=== PATIENT | male | born 1975 | race Caucasian/White ===

== ENCOUNTER 2021-09-05 19:49 | Emergency (ER) | payer BC, OTHER ==
[~2021-09-05] VITALS: Ht 172.7 cm; Wt 82.2 kg
[2021-09-05 20:12] VITALS: BP 121/89
[2021-09-05] MEDS ORDERED: traZODone 50mg tablet PO STA (22:33)
[2021-09-05] MEDS ORDERED: clonazePAM 1mg tablet PO ONE (22:35)
== END 2021-09-05 22:30 | disposition home or self-care (01) ==
LOC: ER 19:50
DX: F41.9 Anxiety disorder, unspecified (principal)
CPT/HCPCS: 99283

== ENCOUNTER 2021-10-08 12:10 | Emergency (ER) | payer BC, OTHER ==
[2021-10-08] MEDS ORDERED: acetaminophen 325mg tablet PO ONE (12:30)
[2021-10-08] MEDS ORDERED: bacitracin 15gm ointment TP ONE (12:30)
[2021-10-08] MEDS ORDERED: ceFAZolin 1000mg inj IV ONE (12:30)
[2021-10-08] MEDS ORDERED: LIDOcaine 1% W/epiNEPHrine 1:200,000 10ml vial IJ ONE (12:30)
[2021-10-08] MEDS ORDERED: ondansetron/PF 4mg/2ml inj IV ONE (12:30)
[2021-10-08] MEDS ORDERED: TETanus/Pertussis (Acell)/Diphther VAC/PF (Tdap-Adult) 0.5ml syringe IMVAC ONE (12:30)
[2021-10-08] MEDS ORDERED: ketorolac tromethamine 15mg/ml inj. IV ONE (12:30)
[2021-10-08] MEDS ORDERED: AMOX-580 PO (12:37)
[2021-10-08] MEDS ORDERED: HYDR-3964 PO (12:37)
[2021-10-08] MEDS ORDERED: ONDA4TAB12 PO (12:37)
[2021-10-08] MEDS ORDERED: cefazolin/dext.iso 2gm/50ml IV ONE (12:40)
[2021-10-08] MEDS ORDERED: LIDOcaine 1% W/epiNEPHrine 1:100,000 20ml vial IJ ONE (13:10)
--- NOTE | 2021-10-08 13:10 | NUR ---
bilingual manager at bedside to washout wound
[2021-10-08] MEDS ORDERED: amox tr/potassium clavulanate 875/125mg TAB PO ONE (13:15)
== END 2021-10-08 14:20 | disposition home or self-care (01) ==
LOC: ER 12:11
DX: S51.812A Laceration without foreign body of left forearm, initial encounter (principal); Z98.890 Other specified postprocedural states; Z79.2 Long term (current) use of antibiotics; Z79.899 Other long term (current) drug therapy; W54.0XXA Bitten by dog, initial encounter; Y93.89 Activity, other specified; Y92.89 Other specified places as the place of occurrence of the external cause; Y99.8 Other external cause status
CPT/HCPCS: 12031; 73090; 90471; 90715; 96374; 99284; J1885; J3490

== ENCOUNTER 2022-05-21 01:14 | Emergency (ER) | payer BC, OTHER ==
[~2022-05-21] VITALS: Ht 172.7 cm; Wt 84.8 kg
[~2022-05-21 01:14] MED LIST: ONDA4TAB12 PO
[2022-05-21] MEDS ORDERED: diphenhydrAMINE 50 mg/ml inj IM ONE (04:00)
[2022-05-21] MEDS ORDERED: haloperidol 5mg tablet PO ONE (04:00)
[2022-05-21] MEDS ORDERED: LORazepam 2 mg/ml vial IM ONE (04:00)
[2022-05-21 04:34] VITALS: BP 125/71
== END 2022-05-21 04:38 | disposition home or self-care (01) ==
LOC: ER 01:15
DX: G47.00 Insomnia, unspecified (principal); Z79.899 Other long term (current) drug therapy; F41.9 Anxiety disorder, unspecified
CPT/HCPCS: 96372; 99284; J1200; J2060

== ENCOUNTER 2023-12-16 09:35 | Emergency (ER) | payer BC ==
[~2023-12-16] VITALS: Ht 172.7 cm; Wt 90.9 kg
[2023-12-16] MEDS ORDERED: ketorolac trometh inj. 60 MG/2 ML VIAL IM ONE (12:55)
[2023-12-16] MEDS: dexamethasone sod phosphate 10mg/ml inj IM STA (13:32)
[2023-12-16] MEDS: cyclobenzaprine 10mg tablet PO ONE (13:33)
[2023-12-16] MEDS: ketorolac trometh. 30mg/ml inj. IM ONE (13:39)
[2023-12-16] MEDS ORDERED: CYCL5TAB14 PO (14:52)
[2023-12-16] MEDS ORDERED: DEC4T PO (14:52)
[2023-12-16 15:00] VITALS: BP 129/84; PULSE 69; TEMP 98; O2SAT 97
[2023-12-16] MEDS ORDERED: HYDR-3973 PO (15:11)
[2023-12-16] MEDS: HYDROcodone/acetaminophen 10/325mg tab PO ONE (15:22)
[2023-12-16 15:23] VITALS: RESP 17
== END 2023-12-16 16:36 | disposition home or self-care (01) ==
LOC: ER 09:36
DX: G89.29 Other chronic pain (principal); M54.59 Other low back pain; Z79.899 Other long term (current) drug therapy
CPT/HCPCS: 96372; 99284; J1100; J1885

== ENCOUNTER 2024-05-15 23:04 | Emergency (ER) | payer BC ==
[~2024-05-15] VITALS: Ht 172.7 cm; Wt 90.9 kg
[~2024-05-15 23:04] MED LIST changes: +CYCL5TAB14 PO; +ONDA-243 PO; -ONDA4TAB12 PO
[2024-05-15 23:27] LABS: BASOPHILS % (AUTO) 0.5 % (0-1); EOSINOPHILS # (AUTO) 0.4 X10'3 (0-0.9); EOSINOPHILS % (AUTO) 4.3 % (0-6); HEMATOCRIT 46.4 % (42.0-52.0); HEMOGLOBIN 15.6 g/dl (14.0-17.9); LYMPHOCYTES # (AUTO) 1.8 X10'3 (1.1-4.8); LYMPHOCYTES % (AUTO) 21.5 % (21-51); MEAN CORPUSCULAR HEMOGLOBIN 29.1 PG (27.0-31.0); MEAN CORPUSCULAR HGB CONC 33.5 g/dL (33.0-36.5); MEAN CORPUSCULAR VOLUME 86.7 FL (78-98); MONOCYTES # (AUTO) 0.7 X10'3 (0-0.9); MONOCYTES % (AUTO) 8.4 % (2-12); NEUTROPHILS # (AUTO) 5.3 X10'3 (1.8-7.7); NEUTROPHILS % (AUTO) 65.3 % (42-75); PLATELET COUNT 232 X10'3 (140-440); RED BLOOD COUNT 5.35 X10'6 (4.70-6.10); RED CELL DISTRIBUTION WIDTH 13.1 % (11.5-14.5); WHITE BLOOD COUNT 8.2 X10'3 (4.5-11.0)
[2024-05-15 23:34] LABS: ALANINE AMINOTRANSFERASE 39 U/L (12-78); ALBUMIN 4.2 G/DL (3.4-5.0); ALBUMIN/GLOBULIN RATIO 1.3 (1.1-1.5); ALKALINE PHOSPHATASE 55 IU/L (46-116); ANION GAP 9 (8-16); ASPARTATE AMINO TRANSFERASE 18 U/L (10-37); BILIRUBIN,TOTAL 0.6 MG/DL (0.1-1.0); BLOOD UREA NITROGEN 19 MG/DL (7-18); BUN/CREATININE RATIO 18.3 (10.0-20.0); CALCIUM 9.2 MG/DL (8.5-10.1); CHLORIDE 101 MMOL/L (99-107); CREATININE 1.04 MG/DL (0.60-1.10); GLUCOSE 124 MG/DL (70-104); POTASSIUM 3.7 MMOL/L (3.5-5.1); SODIUM 138 MMOL/L (135-145); TOTAL CARBON DIOXIDE 27.7 MMOL/L (24-32); TOTAL PROTEIN 7.4 G/DL (6.4-8.2); eCRCL 83 ML/MIN; eGFR 76 ML/MIN
[2024-05-15 23:43] LABS: PRO BRAIN NATRIURETIC PEPTIDE < 30 PG/ML (0-125)
[2024-05-15] MEDS: LORazepam 2 mg/ml vial IM ONE (23:46)
[2024-05-16] MEDS ORDERED: LORA2TAB96 PO (00:22)
[2024-05-16 00:27] VITALS: BP 120/82; PULSE 94; RESP 15; TEMP 98.7; O2SAT 98
== END 2024-05-16 00:30 | disposition home or self-care (01) ==
LOC: ER 23:05
DX: F41.9 Anxiety disorder, unspecified (principal); Z79.899 Other long term (current) drug therapy
CPT/HCPCS: 36415; 71045; 80053; 83880; 84484; 85025; 93005; 96372; 99285; J2060